=== PATIENT | male | born 2000 | race Caucasian/White ===

== ENCOUNTER 2018-03-24 09:03 | Emergency (ER) | payer BC ==
[2018-03-24 09:12] VITALS: BP 118/62
--- NOTE | 2018-03-24 09:38 | UC ---
Skin Complaint HPI - HPI Summary HPI Summary: patient experienced "dry lips" over past week. getting worse. tried neosporin, antifungal cream and alcohol wipes without help this am awoke with clear yellow film over lips that peeled off in shower. now corners of mouth very sore and cracked with yellow "leakage" has had hx cold sores but is positive this is not cold sore - History of Current Complaint Chief Complaint: UCGeneralIllness Time Seen by Provider: 03/24/18 09:13 Stated Complaint: FUNGAL INFECTION ON LIPS Hx Obtained From: Patient Onset/Duration: Gradual Onset Timing: Constant Onset Severity: Mild Current Severity: Moderate Pain Intensity: 5 Location: Face Character: Redness, Painful Aggravating Factor(s): Touch Alleviating Factor(s): Nothing Associated Signs & Symptoms: Positive: Negative - Allergy/Home Medications Allergies/Adverse Reactions: Allergies Allergy/AdvReac Type Severity Reaction Status Date / Time No Known Allergies Allergy Verified 03/24/18 09:12 Review of Systems Constitutional: Negative Skin: Other - lips cracked and painful Respiratory: Negative Cardiovascular: Negative Neurological: Negative Psychological: Negative Is Patient Immunocompromised?: No All Other Systems Reviewed And Are Negative: Yes PMH/Surg Hx/FS Hx/Imm Hx Previously Healthy: Yes - Surgical History Surgical History: None - Family History Known Family History: Positive: None - Social History Occupation: Student Lives: With Family Alcohol Use: Occasionally Substance Use Type: None Smoking Status (MU): Never Smoked Tobacco Physical Exam Triage Information Reviewed: Yes Appearance: Well-Appearing, No Pain Distress, Well-Nourished Vital Signs: Initial Vital Signs Temp 97.2 F 03/24/18 09:09 Pulse 99 03/24/18 09:09 Resp 16 03/24/18 09:09 BP 118/62 03/24/18 09:09 Pulse Ox 100 03/24/18 09:09 Vital Signs Reviewed: Yes Eyes: Positive: Conjunctiva Clear Respiratory Exam: Normal Cardiovascular Exam: Normal Neurological Exam: Normal Neurological: Positive: Alert Psychological Exam: Normal Skin Exam: Other - bilateral corners of mouth erythemic, tender, cracked skin, wet appearance. no distinct lesion. oral mucosa normal Course/Dx - Differential Diagnoses - Skin Complaint Differential Diagnoses: Contact Dermatitis, Impetigo, Local Allergic Reaction, Tinea - Diagnoses Provider Diagnoses: chelitis Discharge - Sign-Out/Discharge Documenting (check all that apply): Discharge/Admit/Transfer - Discharge Plan Condition: Good Disposition: HOME Prescriptions: Clotrimazole/Betamethasone* [Lotrisone Cream*] 1 applic TOPICAL BID #1 tube Mupirocin 2% OINT* [Bactroban 2 % Oint*] 1 applic TOPICAL BID #15 grams Patient Education Materials: Impetigo (ED) Referrals: Nabil Urban MD [Primary Care Provider] - 3 Days (if no better) Additional Instructions: keep lips clean and dry and avoid licking lips Apply mupirocin ointment twice daily, wait 30 minutes and then apply lotrisone cream throw away your old chap stick return if problems worsen at any time - Billing Disposition and Condition Condition: GOOD Disposition: HOME
== END 2018-03-24 09:55 | disposition home or self-care (01) ==
LOC: UCEAST 09:03
DX: K13.0 Diseases of lips (principal)
CPT/HCPCS: 99212; G0463